=== PATIENT | female | born 1960 | race African-American/Black ===

== ENCOUNTER 2020-10-15 04:17 | Inpatient (IN) | payer OTHER ==
[2020-10-10 13:28] VITALS: BMI 32.5
[2020-10-15] MEDS ORDERED: KETAMINE HCL 200 MG/20 ML VIAL ONE (06:40)
[2020-10-15] MEDS ORDERED: fentaNYL CITRATE 250 MCG/5 ML VIAL ONE (06:40)
[2020-10-15] MEDS ORDERED: PROPOFOL 20 ML ONE ×4 (06:41)
[2020-10-15] MEDS ORDERED: ROCURONIUM BROMIDE 50 MG/5 ML SYRINGE ONE ×2 (06:42)
[2020-10-15] MEDS ORDERED: SUCCINYLCHOLINE CHLORIDE 200 MG/10 ML SYRINGE ONE ×2 (06:42→09:12)
[2020-10-15] MEDS ORDERED: EPHEDRINE SULFATE/0.9% NACL/PF 50 MG/10 ML SYRINGE NR ONE (06:42)
[2020-10-15] MEDS ORDERED: NEOSTIGMINE METHYLSULFATE 0.5 MG/1 ML - 10 ML MDV ONE ×2 (06:43)
[2020-10-15] MEDS ORDERED: MIDAZOLAM HCL 2 MG/2 ML SINGLE DOSE VIAL ONE ×3 (06:44→07:26)
[2020-10-15] MEDS ORDERED: CEFAZOLIN 2 GM in DEXTROSE 5%-WATER - 100 ML IVPB ONE (08:04)
[2020-10-15] MEDS ORDERED: ONDANSETRON 4 MG/2 ML VIAL ONE ×2 (09:02→14:32)
[2020-10-15] MEDS ORDERED: oxyCODONE HCL 5 MG TABLET PO PRN ×4 (10:06→14:34)
[2020-10-15] MEDS ORDERED: ACETAMINOPHEN 325 MG TABLET (FP) PO PRN (10:06)
[2020-10-15] MEDS ORDERED: ONDANSETRON 4 MG/2 ML VIAL IVPUSH PRN ×2 (10:13→14:42)
[2020-10-15] MEDS: IBUPROFEN 800 MG/8 ML IJ IVPB PRN ×2 (10:20→18:00)
[2020-10-15] MEDS ORDERED: HYDROmorphone HCl 2 MG/ML VIAL ONE (11:40)
[2020-10-15] MEDS ORDERED: HYDROmorphone HCL CARPU-JECT 2 MG/1 ML DISP.SYRIN IVPUSH ONE (12:45)
[2020-10-15] MEDS: DEXTROSE 5%-LACTATED RINGERS 1,000 ML IV SCH (14:00)
[2020-10-15] MEDS: CEFAZOLIN 2 GM/D5W 2 GM/50 ML ML IVPB SCH (16:04)
[2020-10-15] MEDS ORDERED: BISMUTH SUBSALICYLATE 262 MG/15 ML BTL PO SCH (23:58)
[2020-10-16] MEDS: CEFAZOLIN 2 GM/D5W 2 GM/50 ML ML IVPB SCH (00:03)
[2020-10-16] MEDS: FAMOTIDINE 20 MG TABLET PO SCH ×2 (00:29→10:10)
[2020-10-16] MEDS: IBUPROFEN 800 MG/8 ML IJ IVPB PRN (05:19)
[2020-10-16 09:24] LABS: BASO % 0.4 % (0-2.0); EOS % 0.5 % (0-4.5); HEMOGLOBIN 12.9 GM/dL (10.7-15.3); LYMPH % 25.5 % (8-40); MCH 25.9 pg (25.7-33.7); MCHC 32.9 g/dl (32.0-36.0); MEAN CELL VOLUME 78.7 fl (80-96); MONO % 7.2 % (3.8-10.2); NEUT % 66.4 % (42.8-82.8); PLATELET COUNT 193 K/MM3 (134-434); RBC 4.96 M/mm3 (3.60-5.2); RDW 14.8 % (11.6-15.6); WHITE BLOOD COUNT 10.9 K/mm3 (4.0-10.0)
[2020-10-16] MEDS: amLODIPine BESYLATE 5 MG TABLET (FP) PO SCH (10:10)
[2020-10-16] MEDS: BISMUTH SUBSALICYLATE 524 MG/30 ML UD PO SCH (10:12)
[2020-10-16] MEDS ORDERED: SIMETHICONE 40 MG/0.6 ML BOTTLE PO PRN (20:08)
[2020-10-16] MEDS ORDERED: SIMETHICONE 80 MG TAB.CHEW (FP) PO PRN (20:13)
[2020-10-16] MEDS: traMADol HCL 50 MG TABLET PO PRN (21:13)
[2020-10-16] MEDS: DEXTROSE 5%-LACTATED RINGERS 1,000 ML IV SCH (21:20)
[2020-10-17 08:17] VITALS: BP 125/75; PULSE 66; TEMP 98.1
[2020-10-17] MEDS: traMADol HCL 50 MG TABLET PO PRN (10:02)
[2020-10-17] MEDS: FAMOTIDINE 20 MG TABLET PO SCH (10:02)
[2020-10-17] MEDS: amLODIPine BESYLATE 5 MG TABLET (FP) PO SCH (10:03)
[2020-10-17] MEDS: BISMUTH SUBSALICYLATE 524 MG/30 ML UD PO SCH (10:03)
== END 2020-10-17 12:40 | disposition home or self-care (01) | DRG 743 ==
LOC: J2C 04:17 → J3W 14:00
PROVIDERS: ADMIT Obstetrics & Gynecology; ATTEND Obstetrics & Gynecology
PROC: 0UT50ZZ Resection of Right Fallopian Tube, Open Approach (ICD-10-PCS; 2020-10-15)
PROC: 0UT20ZZ Resection of Bilateral Ovaries, Open Approach (ICD-10-PCS; 2020-10-15)
PROC: 0DNW0ZZ Release Peritoneum, Open Approach (ICD-10-PCS; 2020-10-15)
PROC: 0UT90ZL Resection of Uterus, Supracervical, Open Approach (ICD-10-PCS; principal; 2020-10-15 08:00)
DX: N85.2 Hypertrophy of uterus (principal); D25.9 Leiomyoma of uterus, unspecified; N95.0 Postmenopausal bleeding; K66.0 Peritoneal adhesions (postprocedural) (postinfection); I10 Essential (primary) hypertension
CPT/HCPCS: 36415; 85025; 88309-TC; 94010; 94760